=== PATIENT | male | born 1970 | race Caucasian/White ===

== ENCOUNTER 2019-05-01 17:52 | Emergency (ER) | payer SELFPAY ==
[2019-05-01] MEDS ORDERED: ONDANSETRON INJ 4 MG/2 ML VIAL IV ONE ×2 (18:28→18:29)
[2019-05-01] MEDS ORDERED: SODIUM CHLORIDE 0.9% 1000ML 1,000 ML IVS ONE (18:29)
[2019-05-01] MEDS ORDERED: LACTATED RINGERS 1,000 ML IVS ONE (20:05)
[2019-05-01] MEDS ORDERED: TAMSULOSIN 0.4 MG CAP PO ONE (20:05)
[2019-05-01] MEDS ORDERED: MORPHINE SULFATE INJ 10 MG/ML VIAL IV ONE (20:05)
[2019-05-01] MEDS ORDERED: KETOROLAC TROMETHAMINE INJ 30 MG/ML VIAL IV ONE (20:05)
--- NOTE | 2019-05-01 20:08 | ED.PDOC ---
History of Present Illness - General Chief Complaint: Abdominal Pain Stated Complaint: R lower abdominal discomfort, nausea Time Seen by Provider: 05/01/19 18:28 Information Source: patient Exam Limitations: no limitations - History of Present Illness Initial Comments: Alexandro Silverio 48 y/o male stated that he had intermittent right flank pain 2 1/2 days ago with 1-2 episodes of N/V.Seen initially at [facility]. blood test done were all WNL.Stated pain was not better.Denies constipation,diarrhea but noticed urine was dark,denies melena,hematemesis.Had recent cardiac stent done at [facility] 2 weeks ago for ME.Also had passe out kidney stones 20 years ago. Abdominal Pain Onset Location: flank - right Pain Radiation: no radiation Quality: sharpness, waxing/waning Timing/Duration: days - 2 1/2 Improving Factors: nothing Worsening Factors: nothing Associated Symptoms: nausea/vomiting Review of Systems - Review of Systems Constitutional: States: no symptoms reported EENTM: States: no symptoms reported Respiratory: States: no symptoms reported Cardiology: States: no symptoms reported Gastrointestinal/Abdominal: States: see HPI Genitourinary: States: see HPI Musculoskeletal: States: no symptoms reported Skin: States: no symptoms reported Neurological: States: no symptoms reported All other Systems: Reviewed and Negative, No Change from Baseline Past Medical History (General) - Patient Medical History Hx Stroke: No Hx Cardiac Disorders: Yes - ME 04/15/19; hypercholesterolemia Hx Diabetes: Yes Hx MRSA: No Surgical History: tonsillectomy, other - cardiac stent - Vaccination History Hx Tetanus, Diphtheria Vaccination: Yes Hx Influenza Vaccination: No Hx Pneumococcal Vaccination: Yes - 2018 - Social History Hx Tobacco Use: Yes - Quit 04/15/19 Hx Alcohol Use: No Family Medical History - Family History Father Family History: No Known Living Status: Still Living Hx Cardiac Disease: Yes - grandparents Physical Exam - Physical Exam General Appearance: Alert, Comfortable, No apparent distress Eyes, Ears, Nose, Throat Exam: normal ENT inspection, pharynx normal Neck: full range of motion, supple, normal inspection Respiratory: chest non-tender, lungs clear, normal breath sounds, no respiratory distress Cardiovascular/Chest: normal peripheral pulses, regular rate, rhythm, no murmur Peripheral Pulses: No deficit Gastrointestinal/Abdominal: non tender, soft, no organomegaly Back Exam: no CVA tenderness, no vertebral tenderness Extremity: no pedal edema, no calf tenderness Neurologic: alert, oriented x 3 Skin Exam: normal color, warm/dry Progress - Progress Progress: 05/01/19 20:14 Vital Signs 05/01/19 05/01/19 05/01/19 18:12 19:00 20:00 Temperature 100.2 F H Pulse Rate [ 70 54 L 75 Right Radial] Respiratory 22 20 20 Rate Blood Pressure 145/92 168/81 126/83 [Right Arm] O2 Sat by Pulse 99 92 L 97 Oximetry - Results/Orders Results/Orders: Laboratory Tests 05/01/19 05/01/19 05/01/19 18:35 18:35 19:46 WBC 13.2 H RBC 5.40 Hgb 16.2 Hct 47.7 MCV 88.3 MCH 29.9 MCHC 33.9 RDW 13.1 Plt Count 238 MPV 7.7 Absolute Neuts (auto) 9.70 H Absolute Lymphs (auto) 2.10 Absolute Monos (auto) 1.20 H Absolute Eos (auto) 0.10 Absolute Basos (auto) 0.20 H Neutrophils % 72.9 Lymphocytes % 15.9 L Monocytes % 8.7 Eosinophils % 1.1 Basophils % 1.4 Sodium 141 Potassium 3.4 L Chloride 103 Carbon Dioxide 24 Anion Gap 17.4 BUN 11 Creatinine 1.47 H BUN/Creatinine Ratio 7.5 L Random Glucose 117 H Serum Osmolality 281.7 Calcium 10.0 Total Bilirubin 1.9 H Direct Bilirubin 0.2 Indirect Bilirubin 1.7 H AST 22 ALT 16 Alkaline Phosphatase 74 Serum Total Protein 8.1 Albumin 4.6 Urine Color Dk yellow Urine Appearance Sl cloudy Urine pH 6.0 Ur Specific [place] >= 1.030 Urine Protein 30 Urine Glucose (UA) Negative Urine Ketones >=160 Urine Blood Small H Urine Nitrite Negative Urine Bilirubin Small H Urine Urobilinogen 4.0 H Ur Leukocyte Esterase Negative Urine RBC 0-1 Urine WBC 0-1 Ur Epithelial Cells 0-1 Calcium Oxalate Crystal 3+ Amorphous Sediment 2+ Urine Bacteria Rare Urine Mucus Large - EKG/XRAY/CT EKG: Sinus Comments: HR-73;old inf wall [place] CT Ordered: Yes - right ureterolithiasis UVJ Departure - Departure Clinical Impression: Flank pain, Obstruction of right ureteropelvic junction due to stone Time of Disposition: 21:16 Disposition: Discharge to Home or Self Care Condition: Fair Departure Forms: ED Discharge - Pt. Copy, Patient Portal Self Enrollment Instructions: Kidney Stones in Adults, How to Strain Your Urine Referrals: UNKNOWN,PHYSICIAN [Primary Care Provider] - 1-2 Weeks Prescriptions: Tramadol HCl 100 mg PO Q8HR PRN #20 tab PRN Reason: Pain Ciprofloxacin [Cipro] 250 mg PO Q12H 10 Days #20 tablet Tamsulosin HCl [Flomax] 0.4 mg PO DAILY #5 cap Home Medications: Ambulatory Orders Atorvastatin Calcium [Lipitor] 80 mg PO DAILY 05/01/19 Ciprofloxacin [Cipro] 250 mg PO Q12H 10 Days #20 tablet 05/01/19 Clopidogrel Bisulfate 75 mg PO DAILY 05/01/19 Tamsulosin HCl [Flomax] 0.4 mg PO DAILY #5 cap 05/01/19 Tramadol HCl 100 mg PO Q8HR PRN #20 tab 05/01/19 Additional Instructions: Return to Emergency room as needed;Follow up with primary Md 03 May 2019 for recheck as needed
--- NOTE | 2019-05-01 20:39 | CT ---
EXAM: CT Abdomen and Pelvis Without Intravenous Contrast CLINICAL HISTORY: 48 years old and is Male; right flank pain/Hx of kidney stone TECHNIQUE: Axial computed tomography images of the abdomen and pelvis without intravenous contrast. Sagittal and coronal reformatted images were created and reviewed. This CT exam was performed using one or more of the following dose reduction techniques: automated exposure control, adjustment of the mA and/or kV according to patient size, and/or use of iterative reconstruction technique. COMPARISON: No relevant prior studies available. FINDINGS: Limitations: None. Lung bases: Unremarkable. No mass. No consolidation. ABDOMEN: Liver: Unremarkable. Gallbladder and bile ducts: Unremarkable. No calcified stones. No ductal dilation. Pancreas: Unremarkable. No ductal dilation. Spleen: Unremarkable. No splenomegaly. Adrenals: Unremarkable. No mass. Kidneys and ureters: There is mild right hydroureteronephrosis. There is a 2 mm stone at the right UVJ. Left kidney appears normal. Stomach and bowel: Colonic diverticulosis. No diverticulitis. No intestinal obstruction. PELVIS: Appendix: Appendix well seen and appears normal. Bladder: Unremarkable. No stones. Reproductive: Unremarkable as visualized. ABDOMEN and PELVIS: Intraperitoneal space: Unremarkable. No free air. No significant fluid collection. Bones/joints: Bilateral chronic L5 pars defects present with grade 1 lumbosacral anterolisthesis. No acute fracture. No dislocation. Soft tissues: Unremarkable. Vasculature: Unremarkable. No abdominal aortic aneurysm. Lymph nodes: Unremarkable. No enlarged lymph nodes. IMPRESSION: 2 mm right UVJ stone with mild hydronephrosis. Electronically signed by: Mine Cintron MD 05/01/2019 8:37 PM CDT
[2019-05-01] MEDS: SODIUM CHLORIDE 0.9% (FLUSH) 10 ML SYG IV PRN ×2 (20:57→21:36)
[2019-05-01] MEDS ORDERED: levoFLOXacin 500 MG TAB PO ONE (21:12)
[2019-05-01] MEDS ORDERED: HYDROCOD/APAP 10/325 (ER DISP) # 3 tablets PO ONE (21:12)
[2019-05-01] MEDS ORDERED: HYDROcodone 10MG/APAP 325MG 1 EA TAB PO ONE (21:12)
[2019-05-01] MEDS ORDERED: diphenhydrAMINE HCL 25 MG CAP PO ONE (21:13)
[2019-05-01 21:33] VITALS: BP 125/82
[2019-05-01 22:21] VITALS: TEMP 99.1; O2SAT 98
== END 2019-05-01 22:18 | disposition home or self-care (01) ==
LOC: ER 17:52
DX: N13.2 Hydronephrosis with renal and ureteral calculous obstruction (principal); I25.2 Old myocardial infarction; E78.00 Pure hypercholesterolemia, unspecified; E11.9 Type 2 diabetes mellitus without complications; Z95.5 Presence of coronary angioplasty implant and graft; Z87.891 Personal history of nicotine dependence; Z87.42 Personal history of other diseases of the female genital tract
CPT/HCPCS: 36415; 74176; 80048; 80076; 81001; 85025; 93005; J1885; J2270; J2405; J7030; J7120; Q0163